=== PATIENT | male | born 1955 | race African-American/Black ===

== ENCOUNTER 2016-11-19 09:35 | Inpatient (IN) | payer BC, OTHER ==
[~2016-11-19] VITALS: Ht 195.6 cm; Wt 96.2 kg
--- NOTE | ~2016-11-19 | HC ---
[facility] [place] [address] CONSULTATION Name: JELLY SAUER Room #: 418-P ADM IN M.R.#: [id number] Admission: 11/19/16 Attend Phys: Pepe Perez MD Discharge: Date of : 55 Report #: [id number] THIS REPORT FOR: //name// CC: Shaheen Perez DATE OF SERVICE: 11/23/2016 CHIEF COMPLAINT: Lip laceration. HISTORY OF PRESENT ILLNESS: The patient is a 61-year-old -[place] male patient who was admitted to [facility] 4 days ago after suffering a syncopal episode with an associated fall. He apparently struck his face on concrete. This apparently occurred after he had stood to go walk to the bathroom. This was an unwitnessed event. He had a laceration on his chin and buccal surface of his lower lip. The patient was seen in the emergency department and his lip laceration was closed with 5-0 chromic apparently. The patient has been admitted since that time for extensive workup of the etiology of his syncopal event. Apparently the patient has fallen multiple times in the recent past of uncertain etiology. Apparently, the patient has developed some swelling in the lower lip and General Surgery has been consulted to evaluate for possible abscess. Of note, the patient has been afebrile without tachycardia and normotensive to hypertensive over the past several days. The patient has also been noted to have a thyroid nodule which is in workup. The patient underwent FNA with ultrasound diagnosis of the right-sided thyroid nodule today. No pathologic results are available at this time. PAST MEDICAL HISTORY: Positive for hypertension, previous bleeding ulcer for which the patient underwent EGD with control of that bleeding ulcer in 1999. SOCIAL HISTORY: Negative for tobacco or drug use. He does drink ETOH on social basis. MEDICATIONS: Include meclizine, Zofran and reported lisinopril. Apparently the patient is not taking a PPI. REVIEW OF SYSTEMS: CONSTITUTIONAL: Negative for fevers, chills or unwanted weight loss. OCULAR: No diplopia or visual change. HEENT: Positive for laceration per the buccal surface of his lower lip, which had been reapproximated with 5-0 chromic by the emergency department. Positive for syncope as described in the HPI. Negative for dysphagia or odynophagia. PULMONARY: No productive cough, no hemoptysis. CARDIOVASCULAR: No chest pain or palpitation. GASTROINTESTINAL: Negative for nausea, vomiting, abdominal pain. GENITOURINARY: Negative for dysuria or hematuria. MUSCULOSKELETAL: No back pain or joint swelling. CUTANEOUS: Negative for skin lesions or rashes. NEUROLOGIC: Positive for syncope as described above. Negative for focal weakness or tingling. PSYCHIATRIC: No depression or anxiety. ENDOCRINE: No [facility] [address] [place] [address] CONSULTATION Name: JELLY SAUER Room #: 418-P [facility] IN M.R.#: [id number] Admission: 11/19/16 Attend Phys: Pepe Perez MD Discharge: Date of : 55 Report #: [id number] heat or cold intolerance. PHYSICAL EXAMINATION: GENERAL: The patient is afebrile with normal vital signs. He is awake, alert and oriented, in no acute distress. He does give appropriate history. HEENT: Oral cavity examination shows edema per the lower lip. On the buccal mucosa, there is a laceration which is fairly well approximated. The chromic suture appears to have dissolved or fallen out already which would be consistent with 5-0 chromic having been used. No active bleeding, no expressible purulence. It is tender to palpation, but no obvious sign of active infection or abscess. Cranial nerves are intact 2-12, no focal weakness of the 7th nerve. Mucosae are pink and moist. No icterus is appreciated. NECK: Supple, no jugular venous distention. LUNGS: Clear to auscultation. No respiratory distress. HEART: Regular, without murmur. ABDOMEN: Soft, nondistended, nontender to palpation. EXTREMITIES: Without clubbing, cyanosis or edema. The patient moves all extremities without focal neurologic deficit. IMPRESSION: 1. 61-year-old male patient who is 4 days status post unwitnessed fall from standing height associated with reported to syncopal event. Syncope workup ongoing per Internal Medicine. 2. Lip laceration, mucosal syrface, repaired by emergency department 4 days ago with chromic suture. No sign of active hemorrhage, infection, or abscess. Patient is tolerating oral intake adequately. No recommendation for general surgical intervention at this time. 2. Otolaryngology has been consulted per primary regarding thyroid mass. Would recommend obtaining their opinion regarding the lip laceration at that time, as well. 3. General Surgery will remain available for any further general surgical questions or concerns. <ELECTRONICALLY SIGNED> By: Jose Sauer MD 11/24/16 0639 [id number] [id number] Jose Sauer MD /nt
--- NOTE | ~2016-11-19 | 2DMMODE ---
[facility] [place] [place] [address] 2 D/M-MODE ECHOCARDIOGRAM Name: JELLY SAUER Room #: 418-P [facility] IN ..#: [id number] Admission: 11/19/16 Attend Phys: Pepe Perez, Discharge: Date of : 55 Date of Service: 11/20/16 1106 Report #: [id number] THIS REPORT FOR: //name// APPROVED REPORT EXAM: Comprehensive 2D, Doppler, and color-flow Echocardiogram Patient Location: Bedside/Room 418 Blood Pressure: 117/68 mmHg HR: 71 bpm Rhythm: NSR Other Information Study Quality: Good Indications Syncope Hx: HTN 2D Dimensions RVDd: 36.99 mm LVEF(%): 62.95 (>50%) IVSd: 11.66 (7-11mm) LVOT Diam: 21.86 (18-24mm) LVDd: 45.05 mm PWd: 11.76 (7-11mm) Ascending Aorta: 32.39 mm LVDs: 29.77 (25-40mm) Aortic Root: 35.00 mm Santos's LVEF: 62.95 % Volumes Left Atrial Volume (Systole) Single Plane 4CH: 52.07 mL Single Plane 2CH: 50.33 mL LA ESV Index: 26.00 mL/m2 Aortic Valve AoV Peak Maykel.: 1.49 m/s AO Peak Gr.: 8.91 mmHg LV Max P.43 mmHg LV Max: 1.27 m/s Mitral Valve MV PHT: 62.32 ms MV E Max Maykel.: 0.89 m/s E/A Ratio: 1.2 MV A Maykel.: 0.73 m/s MV Decel. Time: 214.91 ms [facility] [address] [place] [address] 2 D/M-MODE ECHOCARDIOGRAM Name: CAMACHOJELLY Room #: 418-P [facility] IN .R.#: [id number] Admission: 11/19/16 Attend Phys: Pepe Perez, Discharge: Date of : 55 Date of Service: 11/20/16 1106 Report #: [id number] TDI E/Lateral E': 11.00 E/Medial E': 14.00 Pulmonary Valve PV Peak Maykel.: 0.97 m/s PV Peak Gr.: 3.80 mmHg Tricuspid Valve TR Peak Maykel.: 2.45 m/s RAP Estimate: 5.00 mmHg TR Peak Gr.: 24.09 mmHg RVSP: 29.00 mmHg Left Ventricle The left ventricle is normal size. There is normal LV segmental wall motion. Mild concentric left ventricular hypertrophy. Left ventricular systolic function is normal. LVEF is 60-65%. The left ventricular diastolic function is normal. Right Ventricle The right ventricle is normal size. The right ventricular systolic function is normal. Atria The left atrium size is normal. The right atrium size is normal. Aortic Valve Aortic valve leaflets are mildly thickened. Trace aortic regurgitation. There is no aortic valvular stenosis. Mitral Valve The mitral valve is normal in structure. Trace mitral regurgitation. Tricuspid Valve The tricuspid valve is normal in structure. There is trace tricuspid regurgitation. The right atrial pressure is estimated at 5 mmHg. Estimated PAP is 29mmHg. Pulmonic Valve Pulmonic valve is not well visualized. Trace pulmonic regurgitation. Great Vessels The aortic root is normal in size. The ascending aorta is normal in size. IVC is normal in size and collapses >50% with inspiration. [facility] [address] [place] [address] 2 D/M-MODE ECHOCARDIOGRAM Name: JELLY SAUER Room #: 418-P [facility] IN M.R.#: [id number] Admission: 11/19/16 Attend Phys: Pepe Perez, Discharge: Date of : 55 Date of Service: 11/20/16 1106 Report #: [id number] Pericardium There is no pericardial effusion. <Conclusion> The left ventricle is normal size. Left ventricular systolic function is normal. LVEF is 60-65%. Aortic valve leaflets are mildly thickened. Trace aortic regurgitation. Trace mitral regurgitation. There is trace tricuspid regurgitation. The right atrial pressure is estimated at 5 mmHg. Estimated PAP is 29mmHg. Trace pulmonic regurgitation. <ELECTRONICALLY SIGNED> By: Rolando Mccormick MD 11/20/16 1106 1106 1106 Rolando Mccormick MD /INF
--- NOTE | ~2016-11-19 | HC ---
[facility] [place] [address] CONSULTATION Name: JELLY SAUER Room #: 418-P [facility] IN M.R.#: [id number] Admission: 11/19/16 Attend Phys: Pepe Perez MD Discharge: Date of : 55 Report #: [id number] THIS REPORT FOR: //name// CC: Shaheen Perez DATE OF SERVICE: 11/19/2016 HISTORY OF PRESENT ILLNESS: This is a 61-year-old male patient who was evaluated by me to determine any neurological etiology for the patient's symptoms. This patient had two episodes of what appeared to be syncope. During both this episode, he was trying to get up and passed out. He did hit his chin, but does look like he hit his head or spine. This episode came without any trauma. No tonic clonic activity was associated with it. For a few second, he was completely out, but to returned back to normal, rather quickly. He does not know what brought it on or made it better. His blood pressure was low here. He is hypertensive. He has been on medication and medication has not been changed. REVIEW OF SYSTEMS: Indicate that he does not have any significant headache at the moment, he never had much headache with it. He does not have any cardiac symptom. He is not complaining of any respiratory difficulty. I carried out his 14-point review of system and he does not have any new eye, ENT, cardiac, respiratory, GI, , musculoskeletal, constitutional, dermatological, hematological, psychiatric, throat or allergic symptom associated with present symptomatology. PAST MEDICAL HISTORY: Positive for syncope, but that happened just a few days ago. FAMILY HISTORY: Negative for early age stroke. SOCIAL HISTORY: He says he drinks alcohol on occasion and he does not smoke. PHYSICAL EXAMINATION: Indicate he is alert, responsive. His speech, concentration, fund of knowledge and memory is at his baseline. Cranial nerve examination 2-12 is unremarkable. He has symmetrical strength, sensation, reflexes and tone in all 4 extremities. There is no meningeal sign. There is no carotid bruit. He is a very well developed individual who does not have any dysmorphic features of eyes, ears and face. His hearing and vision looks adequate. He has no thyroid mass or carotid bruit. His heart sounds are regular and he does not have any murmur. He does not have any respiratory difficulty or rhonchi on either side. His pulses are palpable. He has no edema, cyanosis or jaundice. His blood pressure is 104/63, respirations 18, pulse is 72, and temperature is 97. LABORATORY DATA: Indicate a normal white count, but his potassium is critically [address] [address] CONSULTATION Name: JELLY SAUER Room #: 418-P [facility] IN M.R.#: [id number] Admission: 11/19/16 Attend Phys: Pepe Perez MD Discharge: Date of : 55 Report #: [id number] low at 2.6, his sodium is also low. His CT scan of the head was reviewed and it was unremarkable. IMPRESSION: It is unlikely that there is any neurological etiology for the patient's symptom. The probable etiology is cardiac or systemic. He is hypotensive and he is also having pretty significant hypotension. He also has low potassium. I suspect that is the most likely etiology for the patient's symptoms. I think he needs workup and management for that as well as other systemic problems, which I will defer to yourself. I will confine myself to determine any neurological etiology for the patient's syncope. In that regard, I will order some workup like MRI and an EEG. RECOMMENDATIONS: 1. I will do an MRI in this patient. 2. I will do an EEG in this patient. 3. If that is negative, is even less likely that there is any neurological etiology for the patient's symptom and the main management is going to be evaluation and management of any systemic causes for his problems including cardiac. I will defer all those evaluation and management to yourself. Thank you very much for this referral. <ELECTRONICALLY SIGNED> By: Dimas Jacob MD 11/20/16 1926 1418 0023 Dimas Jacob MD /nt
--- NOTE | ~2016-11-19 | EKG ---
[place] [address] [facility] [place] [address] ELECTROCARDIOGRAM REPORT Name: JELLY SAUER Room #: 418-P ADM IN M.R.#: [id number] Admission: 11/19/16 Attend Phys: Pepe Perez MD Discharge: Date of : 55 Report #: [id number] THIS REPORT FOR: //name// [facility] ED Test Date: 2016-11-19 Test Time: 09:50:53 Pat Name: JELLY SAUER Department: Room: [facility] Gender: M Senior Genetic Counselor: Shiloh MENDEZ : 1955 Requested By: Louisa Ponce Order Number: [id number] MD: Zak Milian Measurements Intervals [place] Rate: 84 P: 53 IN: 195 QRS: 42 QRSD: 109 T: -35 QT: 339 QTc: 401 Interpretive Statements Sinus rhythm LVH with secondary repolarization abnormality No previous ECG available for comparison Electronically Signed On 11-20-2016 7:19:14 CDT by Zak Milian [email or web address] <ELECTRONICALLY SIGNED> By: Zak Milian MD, [facility] 11/20/16 0719 0950 0950 Zak Milian MD, FACC /EPI
--- NOTE | ~2016-11-19 | CNG ---
[facility] [place] [address] CYTO-NONGYN REPORT PROCEDURE Name: JELLY BECKMAN Room #: 418-P DIS IN M.R.#: [id number] Admission: 11/19/16 Date of : 55 Discharge: 11/24/16 Report #: [id number] Path Case #: [id number] CYTOPATHOLOGY REPORT COLLECTION DATE: 11/23/2016 RECEIVED DATE: 11/23/2016 SUBMITTING PHYS: Dr. Jay Sarabia OTHER PHYS: Dr. Shaheen Perez CLINICAL HISTORY: Right Thyroid nodule SPECIMEN(S) RECEIVED: A.Fine needle aspiration, Right Inf thyroid * * * * * * * * * * * * FINAL DIAGNOSIS: A. Thyroid, Right Inferior thyroid, Fine needle aspiration: B[place] CATEGORY II. SPECIMEN CONSISTS OF GROUPS OF FOLLICULAR CELLS, MACROPHAGES, WATERY COLLOID AND BLOOD, COMPATIBLE WITH AN ADENOMATOID NODULE. COMMENT: Nuclear features of papillary thyroid carcinoma are not identified. Findings are suggestive of an adenomatoid nodule. Please note sample represents a minute portion of a larger lesion and may not be shared services representative. Correlate clinically and follow up as indicated. (IUV; 11/24/16) PATHOLOGIST: Cherise Jean Baptiste M.D. REPORT ELECTRONICALLY SIGNED BY: Cherise Jean Baptiste M.D. DATE/TIME: 11/24/2016 14:27 * * * * * * * * * * * * GROSS PATHOLOGY: A. Fine needle aspiration, Right Inf thyroid: The specimen is labeled "Jelly Beckman" and consists of four fixed slides, four air dried slides. Twenty-two mL of clear pink fluid in CytoLyt from the needle rinse is also submitted and One Thinprep slide and a cell block were prepared from this material. (11.23.2016) SUSPENDER MAKER(S): RAMONE Motley(ASCP)IAC INITIAL CPT CODE(S): A; 80546, 57792 [facility] at [address] , [place], [place] [id number] [place] [address] [place] [address] CYTO-NONGYN REPORT PROCEDURE Name: JELLY BECKMAN Room #: 418-P DIS IN M.R.#: [id number] Admission: 11/19/16 Date of : 55 Discharge: 11/24/16 Report #: [id number] Path Case #: [id number] Technical services performed by [facility] at [address] [place] [address], [address], [place] [address]. [address] [place] [address] PHONE: [phone] DIRECTOR: Wilman Mckeon M.D. * * * END OF REPORT * * *
--- NOTE | ~2016-11-19 | EEG ---
[facility] [place] [address] ELECTROENCEPHALOGRAM Name: JELLY SAUER Room #: 418-P [facility] IN M.R.#: [id number] Admission: 11/19/16 Attend Phys: Pepe Perez MD Discharge: Date of : 55 Report #: [id number] THIS REPORT FOR: //name// CC: Shaheen Perez DATE OF SERVICE: 11/19/2016 This patient is being evaluated for an episode of syncope. EEG was done by placing the electrodes by standard 10-20 system of electrode placement. Both referential and sequential montages were used for recording. Background activity in this patient's EEG is about 10 Hz and 30-40 microvolts. It is a symmetrical activity. The patient went to sleep and that is associated with bilaterally symmetrical sleep spindle and vertex sharp waves. Photic stimulation is unremarkable. Throughout the record, no active epileptiform activity was noticed. IMPRESSION: This patient's EEG is within normal limits. Thank you very much for this referral. <ELECTRONICALLY SIGNED> By: Dimas Jacob MD 11/20/160 1738 55 Dimas Jacob MD /nt
--- NOTE | ~2016-11-19 | EKG ---
[address] [address] ELECTROCARDIOGRAM REPORT Name: JELLY SAUER Room #: 418-P ADM IN M.R.#: [id number] Admission: 11/19/16 Attend Phys: Pepe Perez MD Discharge: Date of : 55 Report #: [id number] THIS REPORT FOR: //name// [facility] Test Date: 2016-11-20 Test Time: 07:58:09 Pat Name: JELLY SAUER Department: Room: 418 P Gender: M Education Nurse: JANNETH : 1955 Requested By: Neisha Alcala Order Number: [id number] MD: Rogelio Butler Measurements Intervals [place] Rate: 75 P: 39 OK: 179 QRS: 33 QRSD: 106 T: -32 QT: 381 QTc: 426 Interpretive Statements Sinus rhythm Left ventricular hypertrophy Nonspecific T abnormalities, lateral leads Baseline wander in lead(s) II,III,aVL,aVF Compared to ECG 11/19/2016 09:50:53 no change Electronically Signed On 11-20-2016 18:19:42 CDT by Rogelio Butler [email or web address] <ELECTRONICALLY SIGNED> By: Rogelio Butler MD 11/20/16 1819 0758 0758 Rogelio Butler MD /EPI
[~2016-11-19 09:35] MED LIST: MECLIZINE HCL25 M1 PO; ZOFRAN 4 MG ORAL4 MG PO
[2016-11-19 09:36] VITALS: BP 142/76
[2016-11-19] MEDS ORDERED: ZESTRIL10 MG PO (09:42)
[2016-11-19 09:50] LABS: ABSOLUTE NEUTROPHILS 4.5 thou/uL (1.4-8.2); BASOPHILS 0.7 % (0.0-2.0); EOSINOPHILS 1.5 % (0.0-3.0); HEMATOCRIT 39.5 % (42.0-52.0); LYMPHOCYTES 26.3 % (24.0-44.0); MCHC 35.5 g/dL (28.0-37.0); MCV 87.5 fL (80.0-100.0); MONOCYTES 10.7 % (1.0-8.0); PLATELET COUNT 187 thou/uL (150-400); POLYS 60.8 % (36.0-66.0); RBC 4.51 mil/uL (4.50-6.00); RDW 13.5 % (10.5-14.5); WBC 7.4 thou/uL (4.0-11.0)
[2016-11-19 09:55] LABS: MANUAL DIFF NO
[2016-11-19 10:07] LABS: ALBUMIN 3.5 g/dL (3.4-5.0); ALKALINE PHOSPHATASE 58 U/L (46-116); ANION GAP 4 mmol/L (7-16); BUN 8 mg/dL (7-18); CALCIUM 8.7 mg/dL (8.5-10.1); CHLORIDE 94 mmol/L (98-107); CO2 33 mmol/L (21-32); CREATININE 1.2 mg/dL (0.6-1.3); GLUCOSE 142 mg/dL (70-99); SGOT 32 U/L (15-37); SGPT 45 U/L (30-65); SODIUM 131 mmol/L (136-145); TOTAL BILIRUBIN 0.5 mg/dL (<0.1-1.0); TROPONIN-I < 0.04 ng/mL (<0.04-0.07)
[2016-11-19 10:12] LABS: POTASSIUM 2.6 mmol/L (3.5-5.1)
[2016-11-19 12:51] LABS: URINE BILIRUBIN NEGATIVE (Negative); URINE BLOOD TRACE (Negative); URINE COLOR YELLOW; URINE GLUCOSE-RANDOM* NEGATIVE (Negative); URINE KETONES NEGATIVE (Negative); URINE NITRITE NEGATIVE (Negative); URINE PROTEIN (DIPSTICK) NEGATIVE (Negative); URINE UROBILINOGEN 0.2 E.U./dl (0.2-1.0)
[2016-11-19 12:52] VITALS: BP 104/63
[2016-11-19 16:18] VITALS: BP 138/89
[2016-11-19 20:00] VITALS: BP 128/72
[2016-11-19 22:06] LABS: GLYCOHEMOGLOBIN (HGB A1C) 5.4 % (4.8-5.6)
[2016-11-20 03:22] LABS: ALBUMIN 3.3 g/dL (3.4-5.0); ALKALINE PHOSPHATASE 56 U/L (46-116); ANION GAP 6 mmol/L (7-16); BUN 8 mg/dL (7-18); CALCIUM 8.9 mg/dL (8.5-10.1); CHLORIDE 92 mmol/L (98-107); CHOLESTEROL 130 mg/dL (<200); CO2 31 mmol/L (21-32); CREATININE 1.1 mg/dL (0.6-1.3); GLUCOSE 123 mg/dL (70-99); HDL CHOLESTEROL 46 mg/dL (>40); LDL CHOLESTEROL 64 mg/dL (<100); POTASSIUM 3.2 mmol/L (3.5-5.1); SGOT 25 U/L (15-37); SGPT 39 U/L (30-65); SODIUM 129 mmol/L (136-145); TC:HDL 2.8 Ratio (Not establshd); TOTAL BILIRUBIN 0.8 mg/dL (<0.1-1.0); TOTAL PROTEIN 7.1 g/dL (6.4-8.2); TRIGLYCERIDE 100 mg/dL (<150); VLDL 20 mg/dL (<40)
[2016-11-20 04:30] VITALS: BP 117/68
[2016-11-20 10:00] VITALS: BP 129/83
[2016-11-20 10:01] VITALS: BP 125/91
[2016-11-20 10:02] VITALS: BP 117/83
[2016-11-20 15:58] VITALS: BP 140/99
[2016-11-20 20:00] VITALS: BP 143/99
[2016-11-21 04:00] VITALS: BP 150/97
[2016-11-21 07:09] VITALS: BP 142/95
[2016-11-21 10:32] LABS: CALCIUM 9.2 mg/dL (8.5-10.1); POTASSIUM 3.4 mmol/L (3.5-5.1)
[2016-11-21 15:35] VITALS: BP 150/90
[2016-11-21 19:31] VITALS: BP 158/98
[2016-11-22 03:12] VITALS: BP 153/105
[2016-11-22 03:47] LABS: CALCIUM 8.8 mg/dL (8.5-10.1); CREATININE 0.9 mg/dL (0.6-1.3); POTASSIUM 3.9 mmol/L (3.5-5.1)
[2016-11-22 08:05] VITALS: BP 141/96
[2016-11-22 16:03] VITALS: BP 142/91
[2016-11-22 20:00] VITALS: BP 159/94
[2016-11-23 04:00] VITALS: BP 123/82
[2016-11-23 06:41] LABS: CALCIUM 9.3 mg/dL (8.5-10.1); CREATININE 1.1 mg/dL (0.6-1.3); POTASSIUM 4.2 mmol/L (3.5-5.1)
[2016-11-23 08:36] VITALS: BP 142/93
[2016-11-23 15:32] VITALS: BP 162/101
[2016-11-23 20:00] VITALS: BP 144/89
[2016-11-24 04:00] VITALS: BP 145/93
[2016-11-24 06:13] LABS: CALCIUM 9.4 mg/dL (8.5-10.1); POTASSIUM 4.2 mmol/L (3.5-5.1)
[2016-11-24 07:41] VITALS: BP 149/86
[2016-11-24] MEDS ORDERED: AUGMENTIN 875875 MG PO (09:43)
[2016-11-24 10:02] VITALS: BP 149/86
== END 2016-11-24 10:55 | disposition home or self-care (01) | DRG 312 ==
LOC: ER 09:35 → EROBS 11:40 → 4E 11:40
PROVIDERS: Internal Medicine; Nurse Practitioner; Physician Assistant
PROC: 0CQ1XZZ Repair Lower Lip, External Approach (ICD-10-PCS; principal; 2016-11-19)
PROC: 0G9H3ZX Drainage of Right Thyroid Gland Lobe, Percutaneous Approach, Diagnostic (ICD-10-PCS; 2016-11-23)
DX: R55 Syncope and collapse (principal); E87.1 Hypo-osmolality and hyponatremia; I10 Essential (primary) hypertension; E87.6 Hypokalemia; R73.9 Hyperglycemia, unspecified; I95.9 Hypotension, unspecified; E07.9 Disorder of thyroid, unspecified; S01.511A Laceration without foreign body of lip, initial encounter; W19.XXXA Unspecified fall, initial encounter; Y93.89 Activity, other specified; Y92.89 Other specified places as the place of occurrence of the external cause; Y99.8 Other external cause status; Z79.899 Other long term (current) drug therapy; Z28.9 Immunization not carried out for unspecified reason
CPT/HCPCS: 10183; 10783